=== PATIENT | male | born 2000 | race African-American/Black ===

== ENCOUNTER 2021-04-03 12:08 | Day surgery (SDC) | payer OTHER ==
[~2021-04-03] VITALS: Ht 180.3 cm; Wt 62.6 kg
[~2021-04-03 12:08] MED LIST: NS 1,000 ML IV ONE
--- NOTE | 2021-04-03 13:50 | ROOR ---
Patient Name: Spenser Arriaga Procedure Date: 04/03/2021 1:23 PM Date of : 2000 Age: 21 Room: [facility] Gender: Male Note Status: Finalized Procedure: Total Colonoscopy to Cecum + ileoscopy + Bx Indications: Clinically significant diarrhea of unexplained origin Providers: Juan Diego Burr MD Referring MD: RAMOS MONTERO MD Requesting Provider: Medicines: Monitored Anesthesia Care Complications: No immediate complications. Procedure: Pre-Anesthesia Assessment: - The heart rate, respiratory rate, oxygen saturations, blood pressure, adequacy of pulmonary ventilation, and response to care were monitored throughout the procedure. The Colonoscope was introduced through the anus and advanced to the terminal ileum, with identification of the appendiceal orifice and IC valve. The colonoscopy was performed without difficulty. The patient tolerated the procedure well. The quality of the bowel preparation was excellent. Findings: The perianal and digital rectal examinations were normal. Non-bleeding internal hemorrhoids were found during retroflexion. The hemorrhoids were small and Grade I (internal hemorrhoids that do not prolapse). No other significant abnormalities were identified in a careful examination of the remainder of the colon. The exam was otherwise without abnormality on direct and retroflexion views. The exam was otherwise without abnormality. Biopsies for histology were taken with a cold forceps from the ascending colon, transverse colon, sigmoid colon and rectum for evaluation of microscopic colitis. The terminal ileum appeared normal. Impression: - Non-bleeding internal hemorrhoids. - The examination was otherwise normal on direct and retroflexion views. - The examination was otherwise normal. - The examined portion of the ileum was normal. - Biopsies were taken with a cold forceps from the ascending colon, transverse colon, sigmoid colon and rectum for evaluation of microscopic colitis. - The exam was otherwise normal to the cecum. Recommendation: - Patient has a contact number available for emergencies. The signs and symptoms of potential delayed complications were discussed with the patient. Return to normal activities tomorrow. Written discharge instructions were provided to the patient. - High fiber diet. - Discharge patient to home. - Continue present medications. - Await pathology results. - Telephone GI clinic for pathology results in 1 week. - Return to referring physician. - The findings and recommendations were discussed with the patient. Procedure Code(s): --- Professional --- 80273, Colonoscopy, flexible; with biopsy, single or multiple Diagnosis Code(s): --- Professional --- K64.0, First degree hemorrhoids R19.7, Diarrhea, unspecified CPT copyright 2019 [employer]. All rights reserved. The codes documented in this report are preliminary and upon shotgun shell reprinting unit operator review may be revised to meet current compliance requirements. Juan Diego Burr MD Juan Diego Burr MD 04/03/2021 1:50:02 PM Electronically signed by Juan Diego Burr MD Number of Addenda: 0 Note Initiated On: 04/03/2021 1:23 PM Estimated Blood Loss: Estimated blood loss: none.
[2021-04-03] MEDS ORDERED: LIDOCAINE 2% 100MG/5ML SDV (FOR ANES.) As Ordered ONE (13:55)
[2021-04-03] MEDS ORDERED: propofoL 200 MG/20 ML VIAL As Ordered ONE (13:55)
[2021-04-03 14:22] VITALS: BP 123/82
== END 2021-04-03 14:24 | disposition home or self-care (01) ==
LOC: M OPP 12:08
PROVIDERS: ATTEND Internal Medicine Gastroenterology
DX: R19.7 Diarrhea, unspecified (principal); D12.6 Benign neoplasm of colon, unspecified; K64.0 First degree hemorrhoids

== ENCOUNTER 2022-08-29 16:27 | Emergency (ER) | payer OTHER ==
[2022-08-29 17:13] VITALS: BP 139/87
[2022-08-29 17:44] LABS: BASO # 0.1 10^3/uL (0.0-0.2); BASO % 0.6 % (0.0-1.0); EOS % 0.1 % (0.0-3.0); HEMATOCRIT 45.7 % (42.0-52.0); HEMOGLOBIN 14.3 g/dl (13.5-17.5); LYMPH # 3.6 10^3/uL (1.5-5.0); LYMPH % 33.6 % (24.0-44.0); MEAN CORPUSCULAR HEMOGLOBIN 26.7 pg (27.0-33.0); MEAN CORPUSCULAR HGB CONC 31.3 g/dl (32.0-36.5); MEAN CORPUSCULAR VOLUME 85.3 fl (80.0-96.0); MONO # 0.7 10^3/uL (0.0-0.8); MONO % 6.3 % (2.0-8.0); NEUTROPHILS # 6.3 10^3/uL (1.5-8.5); NEUTROPHILS % 58.9 % (36.0-66.0); PLATELET COUNT, AUTOMATED 201 10^3/uL (150-450); RED BLOOD COUNT 5.36 10^6/uL (4.30-6.10); WHITE BLOOD COUNT 10.7 10^3/uL (4.0-10.0)
[2022-08-29 17:55] LABS: INR 1.02; PROTHROMBIN TIME 13.6 SECONDS (12.5-14.5)
[2022-08-29 17:56] LABS: PARTIAL THROMBOPLASTIN TIME 34.3 SECONDS (24.8-34.2)
[2022-08-29 18:12] LABS: BLOOD UREA NITROGEN 10 MG/DL (9-23); CARBON DIOXIDE LEVEL 30 MMOL/L (20-31); CHLORIDE LEVEL 102 MMOL/L (98-107); CREATININE FOR GFR 0.82 MG/DL (0.70-1.30); GLOMERULAR FILTRATION RATE > 60.0 (>60); GLUCOSE, FASTING 81 MG/DL (60-100); POTASSIUM SERUM 3.8 MMOL/L (3.5-5.1); SODIUM LEVEL 137 MMOL/L (136-145)
[2022-08-29 18:13] LABS: CPK CREATINE PHOSPHOKINASE 231 U/L (46-171); MB/CK RELATIVE INDEX 2.16 (< OR =4)
[2022-08-29 18:33] LABS: D-DIMER QUANT < 270 ng/ml (<500)
[2022-08-29] MEDS ORDERED: NAPR-837 PO (19:16)
== END 2022-08-29 19:41 | disposition home or self-care (01) ==
LOC: EDBD 16:27 → M ED 16:27
DX: R07.89 Other chest pain (principal); R00.2 Palpitations; R05.9 Cough, unspecified; I73.00 Raynaud's syndrome without gangrene